=== PATIENT | male | born 1995 | race Caucasian/White ===

== ENCOUNTER 2017-05-16 15:39 | Emergency (ER) | payer OTHER ==
[~2017-05-16] VITALS: Ht 185.4 cm; Wt 71.0 kg
[2017-05-16 15:54] VITALS: BP 110/85; PULSE 119; RESP 16; TEMP 98.5; O2SAT 100
--- NOTE | 2017-05-16 16:00 | PD ---
HPI Chief Complaint: Cardiac Complaint Time Seen by Provider: 15:45 Travel History International Travel<30 days: No Contact w/Intl Traveler<30days: No Traveled to known affect area: No History of Present Illness HPI The patient was seen and examined in the presence of the nurse. This patient complains of a racing heartbeat and a pounding heartbeat. Duration 3 days. It is intermittent. It started shortly after he snorted cocaine. He denies IV drug use. He is not having chest pain or syncopal symptoms. His history of anxiety. He gets from friends and also uses marijuana. Symptoms severity is moderate. No alleviating factors. Symptoms exacerbated by his polysubstance abuse. PFSH Past Medical History Diminished Hearing: No Respiratory: Yes (CHILDHOOD ASTHMA) Immunizations Current: Yes Social History Alcohol Use: No Tobacco Use: Yes (VAPOR) Substance Use: No Allergies-Medications (Allergen,Severity, Reaction): Coded Allergies: No Known Allergies (Verified , 05/27/16) Reported Meds & Prescriptions Reported Meds & Active Scripts Active No Active Prescriptions or Reported Medications Review of Systems General / Constitutional: No: Fever Eyes: No: Visual changes HENT: No: Headaches Cardiovascular: Positive: Palpitations, Tachycardia, No: Chest Pain or Discomfort Respiratory: No: Shortness of Breath Gastrointestinal: No: Abdominal Pain Genitourinary: No: Dysuria Musculoskeletal: No: Pain Skin: No Rash Neurologic: No: Weakness Psychiatric: Positive: Substance Abuse, No: Depression Endocrine: No: Polydipsia Hematologic/Lymphatic: No: Easy Bruising Physical Exam Narrative GENERAL: Well-nourished, well-developed patient in no apparent distress. SKIN: Focused skin assessment reveals no rash and nodules. Skin is Warm and dry. HEAD: Atraumatic. Normocephalic. EYES: Pupils equal and round. No scleral icterus. No injection or drainage. ENT: No nasal bleeding or discharge. Mucous membranes pink and moist. NECK: Trachea midline. No JVD. CARDIOVASCULAR: Regular rate and rhythm. No murmur appreciated. Heart rate 94 RESPIRATORY: No accessory muscle use. Clear to auscultation. Breath sounds equal bilaterally. GASTROINTESTINAL: Abdomen soft, non-tender, nondistended. Hepatic and splenic margins not palpable. MUSCULOSKELETAL: No obvious deformities. No clubbing. No cyanosis. No edema. NEUROLOGICAL: Awake and alert. No obvious cranial nerve deficits. Motor grossly within normal limits. Normal speech. PSYCHIATRIC: Appropriate mood and affect; insight and judgment poor . Data Data Last Documented VS Vital Signs Date Time Temp Pulse Resp B/P (MAP) Pulse Ox O2 Delivery O2 Flow Rate FiO2 05/16/17 15:59 16 100 Nasal Cannula 2.00 05/16/17 15:54 98.5 119 110/85 (93) Orders Orders Iv Access Insert/Monitor (05/16/17 15:54) Complete Blood Count With Diff (05/16/17 15:54) Basic Metabolic Panel (Bmp) (05/16/17 15:54) Electrocardiogram (05/16/17 ) [employer] / Telemetry [id number] (05/16/17 15:54) Labs Laboratory Tests Test 05/16/17 15:55 White Blood Count 9.7 TH/MM3 Red Blood Count 5.44 MIL/MM3 Hemoglobin 16.8 GM/DL Hematocrit 49.4 % Mean Corpuscular Volume 90.9 FL Mean Corpuscular Hemoglobin 30.8 PG Mean Corpuscular Hemoglobin Concent 33.9 % Red Cell Distribution Width 12.4 % Platelet Count 373 TH/MM3 Mean Platelet Volume 8.3 FL Neutrophils (%) (Auto) 66.1 % Lymphocytes (%) (Auto) 23.6 % Monocytes (%) (Auto) 5.9 % Eosinophils (%) (Auto) 1.0 % Basophils (%) (Auto) 3.4 % Neutrophils # (Auto) 6.4 TH/MM3 Lymphocytes # (Auto) 2.3 TH/MM3 Monocytes # (Auto) 0.6 TH/MM3 Eosinophils # (Auto) 0.1 TH/MM3 Basophils # (Auto) 0.3 TH/MM3 CBC Comment DIFF FINAL Differential Comment Blood Urea Nitrogen 13 MG/DL Creatinine 1.10 MG/DL Random Glucose 96 MG/DL Calcium Level 9.6 MG/DL Sodium Level 140 MEQ/L Potassium Level 3.5 MEQ/L Chloride Level 104 MEQ/L Carbon Dioxide Level 27.4 MEQ/L Anion Gap 9 MEQ/L Estimat Glomerular Filtration Rate 86 ML/MIN MDM Medical Decision Making Medical Screen Exam Complete: Yes Emergency Medical Condition: Yes Medical Record Reviewed: Yes Differential Diagnosis Palpitations, cardiac arrhythmia, polysubstance abuse Narrative Course I have reviewed the patient's electronic medical record. Patient's been here for anxiety symptoms before IV placed CBC is normal Metabolic profile is normal I reviewed his EKG which shows sinus rhythm at [address] elevation Extended cardiac monitoring reveals sinus rhythm, sometimes is tachycardic up to about 115 Heart rate currently at 80 sinus rhythm Stable for outpatient follow-up His palpitations should resolve if his substance abuse does Diagnosis Primary Impression: Palpitations Additional Impression: Polysubstance abuse Additional Instructions: The patient was advised to follow up with their physician and return if they worsen. Med/Other Pt SpecificInfo: Other Scripts No Active Prescriptions or Reported Meds Disposition: 01 DISCHARGE HOME Condition: Stable Finesse Camarena MD May 16, 2017 16:00
[2017-05-16 16:03] LABS: AUTOMATED NEUTROPHIL # 6.4 TH/MM3 (1.8-7.7); BASOPHIL # 0.3 TH/MM3 (0-0.2); BASOPHIL % 3.4 % (0.0-2.0); EOSINOPHIL # 0.1 TH/MM3 (0-0.4); HEMATOCRIT 49.4 % (39.0-51.0); HEMO FLAGS DIFF FINAL; LYMPH % 23.6 % (9.0-44.0); LYMPHOCYTE # 2.3 TH/MM3 (1.0-4.8); MEAN CELL VOLUME 90.9 FL (80.0-100.0); MEAN CORPUSCULAR HEMOGLOBIN 30.8 PG (27.0-34.0); MEAN CORPUSCULAR HGB CONC 33.9 % (32.0-36.0); MONO % 5.9 % (0.0-8.0); NEUT % 66.1 % (16.0-70.0); PLATELET COUNT 373 TH/MM3 (150-450); RED BLOOD COUNT 5.44 MIL/MM3 (4.50-5.90); RED CELL DISTRIBUTION WIDTH 12.4 % (11.6-17.2); WHITE BLOOD COUNT 9.7 TH/MM3 (4.0-11.0)
[2017-05-16 16:09] LABS: POTASSIUM 3.5 MEQ/L (3.5-5.1)
[2017-05-16 16:12] LABS: BICARBONATE 27.4 MEQ/L (21.0-32.0)
[2017-05-16 16:50] VITALS: BP 134/76
--- NOTE | 2017-05-17 16:17 | EKG ---
Date Performed: 05/16/2017 Time Performed: 15:48:49 PTAGE: 21 years EKG: Sinus rhythm POSSIBLE LEFT ATRIAL ENLARGEMENT NONSPECIFIC T-WAVE ABNORMALITY BORDERLINE ECG PREVIOUS TRACING : 04/04/2015 22.24 Since previous tracing, no significant change noted DOCTOR: Raul Olguin Interpretating Date/Time 05/17/2017 16:16:01
== END 2017-05-16 16:58 | disposition home or self-care (01) ==
LOC: PHED 15:39
DX: R00.2 Palpitations (principal); F19.10 Other psychoactive substance abuse, uncomplicated; R94.31 Abnormal electrocardiogram [ECG] [EKG]; Z72.0 Tobacco use; Z87.09 Personal history of other diseases of the respiratory system; Z86.59 Personal history of other mental and behavioral disorders
CPT/HCPCS: 80048; 85025; 93005; 99284

== ENCOUNTER 2017-05-29 13:44 | Emergency (ER) | payer OTHER ==
[~2017-05-29] VITALS: Ht 188 cm; Wt 73.0 kg
[2017-05-29 13:52] VITALS: BP 127/58; PULSE 87; RESP 16; TEMP 98.6; O2SAT 99
[2017-05-29] MEDS ORDERED: AMOX500T PO (14:07)
--- NOTE | 2017-05-29 14:07 | PD ---
HPI Chief Complaint: Cold / Flu Symptoms Time Seen by Provider: 13:57 Travel History International Travel<30 days: No Contact w/Intl Traveler<30days: No Traveled to known affect area: No History of Present Illness HPI 21 year old male here with sore throat and fever times one day. Symptoms are similar to strep infections in the past. Denies difficulty swallowing or change in voice. He denies cough, nasal congestion. Symptoms severity moderate. No alleviating factors. PFSH Past Medical History Medical History: Denies Significant Hx Anxiety: Yes Diminished Hearing: No Respiratory: Yes (CHILDHOOD ASTHMA) Immunizations Current: Yes Social History Alcohol Use: No Tobacco Use: Yes (VAPOR) Substance Use: Yes (MARIJUANA) Allergies-Medications (Allergen,Severity, Reaction): Coded Allergies: No Known Allergies (Verified Adverse Reaction, Unknown, 05/29/17) Reported Meds & Prescriptions Reported Meds & Active Scripts Active No Active Prescriptions or Reported Medications Review of Systems Except as stated in HPI: all other systems reviewed are Neg General / Constitutional: Positive: Fever HENT: Positive: Sore Throat Physical Exam Narrative GENERAL: Alert well-appearing male. SKIN: Warm and dry. HEAD: Normocephalic. EYES: No scleral icterus. No injection or drainage. THROAT: Pharyngeal erythema. No tonsillar hypertrophy or exudate. NECK: Supple, trachea midline. + lymphadenopathy. CARDIOVASCULAR: Regular rate and rhythm without murmurs, gallops, or rubs. RESPIRATORY: Breath sounds equal bilaterally. No accessory muscle use. GASTROINTESTINAL: Abdomen soft, non-tender, nondistended. Data Data Last Documented VS Vital Signs Date Time Temp Pulse Resp B/P (MAP) Pulse Ox O2 Delivery O2 Flow Rate FiO2 05/29/17 13:52 98.6 87 16 127/58 (81) 99 MDM Medical Decision Making Medical Screen Exam Complete: Yes Emergency Medical Condition: Yes Differential Diagnosis Strep pharyngitis, viral pharyngitis, URI Narrative Course 21-year-old male with sore throat and fever times one day on exam he has pharyngeal erythema with small amount of exudate. He'll be treated for pharyngitis. Diagnosis Primary Impression: Pharyngitis Qualified Codes: J02.9 - Acute pharyngitis, unspecified Referrals: [facility] Additional Instructions: Take [id number] Tylenol or Motrin as needed for pain. Scripts Amoxicillin (Amoxicillin) 500 Mg Tab 500 MG PO TID for Infection for 10 Days, TAB 0 Refills Prov: Destinee Alanis 05/29/17 Disposition: 01 DISCHARGE HOME Condition: Stable Destinee Alanis May 29, 2017 14:07
== END 2017-05-29 14:17 | disposition home or self-care (01) ==
LOC: PHEFT 13:44
DX: J02.9 Acute pharyngitis, unspecified (principal); F17.290 Nicotine dependence, other tobacco product, uncomplicated
CPT/HCPCS: 99283